=== PATIENT | female | born 1965 | race Two or more races ===

== ENCOUNTER 2020-01-08 21:49 | Inpatient (IN) | payer MEDICAID ==
[~2020-01-08] VITALS: Ht 157.5 cm; Wt 65.0 kg
[2020-01-08 23:14] LABS: Basophils # (auto) 0 10 ^3/uL (0-0.2); Eosinophils # (auto) 0 10 ^3/uL (0-0.8); Eosinophils % (auto) 0.2 % (0.0-7.0); Hemoglobin 12.4 g/dL (12.2-16.2); Lymphocytes # (auto) 0.7 10 ^3/uL (0.4-5.4); Lymphocytes % (auto) 25.1 % (10.0-50.0); Mean Corpuscular Hemoglobin 29.8 pg (28.0-32.0); Mean Corpuscular Hgb Conc. 33.4 g/dL (32.0-36.0); Mean Corpuscular Volume 89.2 fL (80.0-100.0); Monocytes # (auto) 0.4 10 ^3/uL (0-1.3); Monocytes % (auto) 13.4 % (0.0-12.0); Neutrophils # (auto) 1.7 10 ^3/uL (1.6-8.6); Neutrophils % (auto) 60.3 % (37.0-80.0); Nucleated Red Blood Cells % 0.2 %; Platelet Count (auto) 177 10^3/uL (140-450); Red Blood Cells 4.15 10^6/uL (4.0-5.20); Red Cell Distribution Width 13.1 % (11.8-14.3); White Blood Cell 2.7 10^3/uL (4.4-10.8)
[2020-01-08 23:29] LABS: INR 1.03 (0.9-1.15)
[2020-01-08 23:38] LABS: Alanine Aminotransferase 25 U/L (13-56); Anion Gap 10 (5-15); Aspartate Aminotransferase 20 U/L (15-37); BUN/Creatinine Ratio 15.5; Bilirubin, Total 0.3 mg/dL (0.2-1.0); Blood Urea Nitrogen 15 mg/dL (7-18); Calcium 8.6 mg/dL (8.5-10.1); Carbon Dioxide 22 mmol/L (21-32); Chloride 106 mmol/L (98-107); GFR African American 78 mL/min; GFR Non-African American 64 mL/min; Glucose 138 mg/dL (74-106); Magnesium 2.4 mg/dL (1.6-2.6); Potassium 3.4 mmol/L (3.5-5.1); Sodium 138 mmol/L (136-145); Total Protein 7.7 g/dL (6.4-8.2)
[2020-01-08 23:40] LABS: Alkaline Phosphatase 106 U/L (45-117)
[2020-01-09] MEDS ORDERED: MORPHINE SULF INJ 2 MG/ML SYRINGE 1ML IV PRN (08:00)
[2020-01-09] MEDS ORDERED: ONDANSETRON HCL 4 MG/2 ML VIAL IV PRN (08:00)
[2020-01-09] MEDS ORDERED: NITROGLYCERIN 0.4 MG SL TAB SL PRN (08:00)
[2020-01-09] MEDS ORDERED: DEXTROSE (50%) 50ML SYRG IV PRN (08:00)
[2020-01-09] MEDS ORDERED: ACETAMINOPHEN 500 MG TAB PO PRN (08:00)
[2020-01-09] MEDS ORDERED: POTASSIUM CHL 20 Meq TABLET PO ONE (08:00)
[2020-01-09] MEDS ORDERED: DOCUSATE SOD 100 MG CAP PO PRN (08:00)
[2020-01-09 08:22] LABS: Basophils # (auto) 0 10 ^3/uL (0-0.2); Basophils % (auto) 0.1 % (0.0-2.0); Eosinophils # (auto) 0 10 ^3/uL (0-0.8); Eosinophils % (auto) 0.3 % (0.0-7.0); Hematocrit 33.5 % (36.0-46.0); Hemoglobin 10.8 g/dL (12.2-16.2); Lymphocytes # (auto) 0.4 10 ^3/uL (0.4-5.4); Lymphocytes % (auto) 3.5 % (10.0-50.0); Mean Corpuscular Hemoglobin 28.4 pg (28.0-32.0); Mean Corpuscular Hgb Conc. 32.1 g/dL (32.0-36.0); Mean Corpuscular Volume 88.4 fL (80.0-100.0); Monocytes # (auto) 0.2 10 ^3/uL (0-1.3); Monocytes % (auto) 1.8 % (0.0-12.0); Neutrophils # (auto) 9.7 10 ^3/uL (1.6-8.6); Neutrophils % (auto) 94.3 % (37.0-80.0); Platelet Count (auto) 221 10^3/uL (140-450); Red Blood Cells 3.79 10^6/uL (4.0-5.20); White Blood Cell 10.3 10^3/uL (4.4-10.8)
[2020-01-09 08:40] LABS: Albumin 2.7 g/dL (3.4-5.0); BUN/Creatinine Ratio 23.9; Potassium 4.1 mmol/L (3.5-5.1)
[2020-01-09 08:42] LABS: Bilirubin, Total 0.2 mg/dL (0.2-1.0); Total Protein 7.1 g/dL (6.4-8.2)
[2020-01-09] MEDS: ENOXAPARIN SOD 40 MG/0.4 ML SYRINGE SC SCH (10:00)
[2020-01-09] MEDS: BUDESONIDE (INHALATION) 180 MCG IH IN SCH ×2 (10:23→22:17)
[2020-01-09 10:58] VITALS: BP 115/69
[2020-01-09] MEDS: ASCORBIC ACID 1,000 MG TAB PO SCH (11:00)
[2020-01-09] MEDS: DOXYCYCLINE 100MG/250ML 250 ML IV SCH ×2 (11:00→22:45)
[2020-01-09] MEDS: DexAMETHasone SOD PHOS 10MG/1ML VIAL INJ IV SCH (11:00)
[2020-01-09] MEDS: PANTOPRAZOLE 40 MG/10 ML VIAL INJ IV SCH (11:01)
[2020-01-09] MEDS: ZINC SULFATE 220mg CAP or TAB PO SCH (11:02)
[2020-01-09] MEDS: MULTIPLE VITAMIN TAB PO SCH (11:03)
[2020-01-09] MEDS: CHOLECALCIFEROL (VITD3) 2,000 UNIT CAP PO SCH (11:03)
[2020-01-09] MEDS: ACCU-CHEK COMFORT CURVE STRIP VI SCH ×3 (12:00→22:46)
[2020-01-09] MEDS: InsuLIN REG 1unit/0.01ml Soln (100units/ml) SC SCH ×3 (12:00→22:45)
[2020-01-09] MEDS: ALBUTEROL SULF HFA 90MCG INH 200DOSE IN SCH ×2 (14:03→22:17)
[2020-01-09] MEDS: SODIUM CHLOR 0.9% PF (SALINE LOCK) 10ML VIAL/SYR IV SCH ×2 (14:44→22:46)
[2020-01-10] MEDS: InsuLIN REG 1unit/0.01ml Soln (100units/ml) SC SCH ×4 (06:16→22:53)
[2020-01-10] MEDS: SODIUM CHLOR 0.9% PF (SALINE LOCK) 10ML VIAL/SYR IV SCH ×3 (06:21→21:28)
[2020-01-10] MEDS: ACCU-CHEK COMFORT CURVE STRIP VI SCH ×3 (06:21→17:26)
[2020-01-10 06:58] LABS: Hematocrit 34.6 % (36.0-46.0); Hemoglobin 11.6 g/dL (12.2-16.2); Mean Corpuscular Hemoglobin 29.7 pg (28.0-32.0); Mean Corpuscular Hgb Conc. 33.5 g/dL (32.0-36.0); Mean Corpuscular Volume 88.5 fL (80.0-100.0); Platelet Count (auto) 224 10^3/uL (140-450); Red Blood Cells 3.91 10^6/uL (4.0-5.20); Red Cell Distribution Width 13.3 % (11.8-14.3); White Blood Cell 2.3 10^3/uL (4.4-10.8)
[2020-01-10 07:01] LABS: Basophils % (manual) 0 (0.0-2.0); Blast Cells 0; Eosinophils % (manual) 0 (0-7); Metamyelocytes % 0; Promyelocytes % 0; Reactive Lymphocytes 0
[2020-01-10 07:29] LABS: Albumin 2.6 g/dL (3.4-5.0); Bilirubin, Total 0.4 mg/dL (0.2-1.0); Calcium 8.8 mg/dL (8.5-10.1); Total Protein 7.4 g/dL (6.4-8.2)
[2020-01-10] MEDS: ALBUTEROL SULF HFA 90MCG INH 200DOSE IN SCH ×3 (07:39→22:00)
[2020-01-10] MEDS: BUDESONIDE (INHALATION) 180 MCG IH IN SCH ×2 (07:39→22:00)
[2020-01-10 08:30] LABS: Band Neutrophils % (manual) 5; Lymphocytes % (manual) 23 (10.0-50.0); Monocytes % (manual) 19 (0-12); Myelocytes % 1
[2020-01-10] MEDS: DexAMETHasone SOD PHOS 10MG/1ML VIAL INJ IV SCH (10:00)
[2020-01-10] MEDS: MULTIPLE VITAMIN TAB PO SCH (10:00)
[2020-01-10] MEDS: DOXYCYCLINE 100MG/250ML 250 ML IV SCH ×2 (10:00→21:28)
[2020-01-10] MEDS: ENOXAPARIN SOD 40 MG/0.4 ML SYRINGE SC SCH (10:00)
[2020-01-10] MEDS: CHOLECALCIFEROL (VITD3) 2,000 UNIT CAP PO SCH (10:00)
[2020-01-10] MEDS: ZINC SULFATE 220mg CAP or TAB PO SCH (10:00)
[2020-01-10] MEDS: ASCORBIC ACID 1,000 MG TAB PO SCH (10:00)
[2020-01-10] MEDS: PANTOPRAZOLE 40 MG/10 ML VIAL INJ IV SCH (10:00)
[2020-01-10] MEDS: BENZTROPINE MESY 0.5 MG TAB PO SCH (21:28)
[2020-01-10] MEDS: VALPROIC ACID 250 MG/5 ML ORAL SOLN PO SCH (21:28)
[2020-01-10] MEDS: GABAPENTIN 400 MG CAP PO SCH (21:29)
[2020-01-10] MEDS ORDERED: INSULIN LANTUS (GLARGINE) 1 /0.01ml (100units/ml) SC SCH (22:00)
[2020-01-10 23:50] VITALS: BP 123/72
--- NOTE | 2020-01-11 | NUR ---
Telemetry admit from [facility] admitted to Telemetry unit. Patient oriented to Jayla Lino, primary RN, unit, room, bed, and unit policies regarding patient care and visiting hours. Patient now on continuous telemetry monitoring, tele box # 17. Patient placed on room air 97% o2 saturation, weighed by bed scale and encouraged to call if they need something. All questions and concerns addressed, patient verbalized understanding.
[2020-01-11 00:15] VITALS: BP 123/72
[2020-01-11 05:00] VITALS: BP 127/69
[2020-01-11] MEDS: SODIUM CHLOR 0.9% PF (SALINE LOCK) 10ML VIAL/SYR IV SCH ×3 (05:43→22:00)
[2020-01-11] MEDS: GABAPENTIN 400 MG CAP PO SCH ×3 (05:43→21:59)
[2020-01-11] MEDS: BENZTROPINE MESY 0.5 MG TAB PO SCH ×3 (05:43→22:16)
[2020-01-11] MEDS: ACCU-CHEK COMFORT CURVE STRIP VI SCH ×4 (06:52→22:05)
[2020-01-11] MEDS: InsuLIN REG 1unit/0.01ml Soln (100units/ml) SC SCH ×4 (06:55→22:00)
[2020-01-11] MEDS: BUDESONIDE (INHALATION) 180 MCG IH IN SCH ×2 (07:15→21:15)
[2020-01-11] MEDS: ALBUTEROL SULF HFA 90MCG INH 200DOSE IN SCH ×3 (07:15→21:16)
--- NOTE | 2020-01-11 08:00 | NUR ---
Opening Shift Note Assumed care of patient, awake, alert and oriented X4. No S/S of distress/SOB or pain. Tele# 17, sinus bradycardia @ 59 bpm. IV X2, left forearm, 22 gauge and right wrist, 22 gauge, both patent and saline locked. Instructed on POC and to call for assist PRN, verbalized understanding. Bed locked, in lowest position, call light within reach, will continue to monitor for changes Q1hr and PRN.
[2020-01-11 09:00] VITALS: BP 111/69
[2020-01-11] MEDS: ZINC SULFATE 220mg CAP or TAB PO SCH (10:00)
[2020-01-11 13:00] VITALS: BP 104/68
--- NOTE | 2020-01-11 13:15 | NUR ---
ROUNDS Dr Reynaga at bedside for rounds, no new orders received at this time.
--- NOTE | 2020-01-11 14:46 | NUR ---
1443 01/11/20 [facility] [phone] and spoke with Shanita-she referred me to [facility] [phone]. I called [facility] and left message asking if they would be able to do an MAGALIS with [facility]-awaiting return call.
[2020-01-11] MEDS: VALPROIC ACID 250 MG/5 ML ORAL SOLN PO SCH ×2 (14:52→21:58)
[2020-01-11] MEDS: DOXYCYCLINE 100MG/250ML 250 ML IV SCH ×2 (14:52→22:00)
[2020-01-11] MEDS: MULTIPLE VITAMIN TAB PO SCH (14:53)
[2020-01-11] MEDS: PANTOPRAZOLE 40 MG TAB PO SCH (14:53)
[2020-01-11] MEDS: ASCORBIC ACID 1,000 MG TAB PO SCH (14:53)
[2020-01-11] MEDS: CHOLECALCIFEROL (VITD3) 2,000 UNIT CAP PO SCH (14:55)
--- NOTE | 2020-01-11 14:59 | NUR ---
1500 01/11/20 I received a call from [facility] [employer] [facility]-he let me know that they can not do an MAGALIS with [facility]-that we need to try their contracted facilities first before they will consider an MAGALIS. I called Shanita with [facility] back [phone]-she will have a list of participating providers faxed to me.
[2020-01-11] MEDS: ENOXAPARIN SOD 40 MG/0.4 ML SYRINGE SC SCH (15:00)
--- NOTE | 2020-01-11 15:12 | NUR ---
I spoke with [facility] discharge nurse Rosa-she said patient has not been with [facility] since March of 2019.
--- NOTE | 2020-01-11 15:32 | NUR ---
Nutrition Assessment Notes Refer to link for further assessment details. Est energy needs: 2491-2433 kcals (23-25 kcals/kgBW) Est protein needs: 51-64 gms/day (0.8-1.0 g/kgBW) Will monitor and reassess prn. Addendum: 01/11/20 at [address] Amended: Links added.
--- NOTE | 2020-01-11 15:50 | NUR ---
Pt is an alert and oriented female that has been residing at [facility] for the past month. Per facility director, Shan, pt was referred by [facility]. Pt had previously been in [facility] before coming to [facility]. Pt has a public Guardian, Michael Hopson. 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 Per Shan 5 out of 6 of his residents tested positive and had to be relocated for a minimum of 2 weeks. States that his licensure does not allow him to take COVID positive pt's until they have been quarantined for 2 weeks. Pt has a slow response and memory issues in addition to LE deconditioning. Pt will need placement until she can return to [facility]. Notified [employer], Ana, who contacted [facility] and they are not contracted with any local facilities. Leo, Health plan family preservation caseworker, provided list of SNF's they are contracted with (63 facilities, with no phone numbers, in [place]). Contacted Victoria at [facility] and explained that pt had relocated from [place] to the [facility] a month ago and also has a public guardian that will have to authorize the transfer back to [place]. Victoria stated she will have the information forwarded to Leo and to the Enrollment department so that pt can disenroll and transition back to [facility]. Also notified Shan, facility director, and Michael Hopson, Public Guardian, who will followup today with the health plan and update myself and Ana.
[2020-01-11 17:00] VITALS: BP 106/42
--- NOTE | 2020-01-11 19:17 | NUR ---
Care endorsed to CACHORRO Hewitt, night nurse.
--- NOTE | 2020-01-11 19:55 | NUR ---
Opening Shift Note Assumed care of patient, awake and alert. No S/S of distress/SOB or pain. Instructed on POC and to call for assist PRN. Bed is in lowest locked position with bed rails up x2 and call light is within reach of the patient.
[2020-01-11 22:00] VITALS: BP 100/59
[2020-01-11] MEDS: INSULIN LANTUS (GLARGINE) 1 /0.01ml (100units/ml) SC SCH (22:00)
[2020-01-12 05:00] VITALS: BP 107/65
[2020-01-12] MEDS: ALBUTEROL SULF HFA 90MCG INH 200DOSE IN SCH ×3 (06:08→20:28)
[2020-01-12] MEDS: BUDESONIDE (INHALATION) 180 MCG IH IN SCH ×2 (06:08→20:29)
[2020-01-12] MEDS: SODIUM CHLOR 0.9% PF (SALINE LOCK) 10ML VIAL/SYR IV SCH ×3 (06:29→22:06)
[2020-01-12] MEDS: GABAPENTIN 400 MG CAP PO SCH ×3 (06:48→22:08)
[2020-01-12] MEDS: ACCU-CHEK COMFORT CURVE STRIP VI SCH ×4 (06:49→22:08)
[2020-01-12] MEDS: BENZTROPINE MESY 0.5 MG TAB PO SCH ×3 (06:54→22:07)
[2020-01-12] MEDS: InsuLIN REG 1unit/0.01ml Soln (100units/ml) SC SCH ×4 (06:57→22:11)
--- NOTE | 2020-01-12 08:00 | NUR ---
Opening note Assumed care of patient from NOC RN. No s/s of distress or pain noted. Bed is in lowest locked position, side rails up x2, and call light within reach. Updated patient on plan of care and patient verbalized understanding. Will continue to monitor.
[2020-01-12 08:42] VITALS: BP 105/67
[2020-01-12 09:37] VITALS: BP 67/20
[2020-01-12] MEDS: DOXYCYCLINE 100MG/250ML 250 ML IV SCH ×2 (10:56→22:06)
[2020-01-12] MEDS: ZINC SULFATE 220mg CAP or TAB PO SCH (10:56)
[2020-01-12] MEDS: PANTOPRAZOLE 40 MG TAB PO SCH (10:57)
[2020-01-12] MEDS: CHOLECALCIFEROL (VITD3) 2,000 UNIT CAP PO SCH (10:57)
[2020-01-12] MEDS: MULTIPLE VITAMIN TAB PO SCH (10:57)
[2020-01-12] MEDS: VALPROIC ACID 250 MG/5 ML ORAL SOLN PO SCH ×2 (10:57→22:07)
[2020-01-12] MEDS: ENOXAPARIN SOD 40 MG/0.4 ML SYRINGE SC SCH (10:58)
[2020-01-12] MEDS: ASCORBIC ACID 1,000 MG TAB PO SCH (10:58)
--- NOTE | 2020-01-12 11:50 | NUR ---
IV removal Bilateral IVs noted to be infiltrated. Both IV DC'd with clean sterile technique, catheters fully intact. Pressure dressings applied to site. Patient tolerated well.
[2020-01-12] MEDS: INSULIN LANTUS (GLARGINE) 1 /0.01ml (100units/ml) SC SCH ×2 (11:52→22:10)
--- NOTE | 2020-01-12 12:00 | NUR ---
IV insertion IV access obtained, via clean sterile technique by inserting 20 gauge catheter at right forearm after 3 attempts. IV secured properly. No trauma to site. Patient tolerated well.
[2020-01-12 13:00] VITALS: BP 103/69
--- NOTE | 2020-01-12 14:10 | NUR ---
Physician rounding. Dr. Reynaga at bedside. MD updated patient on plan of care, per MD patient is to go to SNF. Will follow through.
--- NOTE | 2020-01-12 14:25 | NUR ---
director of therapy services spoke with Letha with social services analyst, per Letha jauregui is on the case for this patient. Will notify
--- NOTE | 2020-01-12 14:28 | NUR ---
Physician notified of garbage pick up worker on case.
--- NOTE | 2020-01-12 15:05 | NUR ---
Call from case management Call received from Ana Gonsalez. Per Ana patient will be transferred at the soonest on Friday, per Ana she will provided updates as them come.
--- NOTE | 2020-01-12 19:30 | NUR ---
Opening Shift Note Assumed care of patient, awake and alert. No S/S of distress/SOB or pain. Instructed on POC and to call for assist PRN. Bed in lowest locked position, call light within reach, side rails up x2. Will continue to monitor for changes Q1hr and PRN.
[2020-01-12 21:49] VITALS: BP 104/59
[2020-01-12 22:00] VITALS: BP 104/59
[2020-01-13 06:40] LABS: Basophils # (auto) 0 10 ^3/uL (0-0.2); Basophils % (auto) 0.3 % (0.0-2.0); Eosinophils # (auto) 0 10 ^3/uL (0-0.8); Eosinophils % (auto) 0.6 % (0.0-7.0); Hematocrit 36.2 % (36.0-46.0); Hemoglobin 12.2 g/dL (12.2-16.2); Lymphocytes # (auto) 1.6 10 ^3/uL (0.4-5.4); Lymphocytes % (auto) 34.6 % (10.0-50.0); Mean Corpuscular Hemoglobin 29.6 pg (28.0-32.0); Mean Corpuscular Hgb Conc. 33.7 g/dL (32.0-36.0); Monocytes # (auto) 0.6 10 ^3/uL (0-1.3); Monocytes % (auto) 11.9 % (0.0-12.0); Neutrophils # (auto) 2.5 10 ^3/uL (1.6-8.6); Neutrophils % (auto) 52.6 % (37.0-80.0); Nucleated Red Blood Cells % 0.1 %; Platelet Count (auto) 378 10^3/uL (140-450); Red Blood Cells 4.11 10^6/uL (4.0-5.20); Red Cell Distribution Width 13.1 % (11.8-14.3); White Blood Cell 4.7 10^3/uL (4.4-10.8)
[2020-01-13 06:57] LABS: Albumin 2.7 g/dL (3.4-5.0); Calcium 8.8 mg/dL (8.5-10.1); Potassium 3.4 mmol/L (3.5-5.1)
[2020-01-13] MEDS: BUDESONIDE (INHALATION) 180 MCG IH IN SCH ×2 (06:59→21:59)
[2020-01-13] MEDS: ALBUTEROL SULF HFA 90MCG INH 200DOSE IN SCH ×3 (06:59→21:59)
[2020-01-13] MEDS: InsuLIN REG 1unit/0.01ml Soln (100units/ml) SC SCH ×4 (07:00→22:00)
[2020-01-13 07:01] LABS: BUN/Creatinine Ratio 18.2; Bilirubin, Total 0.4 mg/dL (0.2-1.0); CRP High Sensitivity 0.53 mg/dL (< 0.3); Total Protein 7.4 g/dL (6.4-8.2)
[2020-01-13] MEDS: SODIUM CHLOR 0.9% PF (SALINE LOCK) 10ML VIAL/SYR IV SCH ×2 (07:04→14:26)
[2020-01-13] MEDS: ACCU-CHEK COMFORT CURVE STRIP VI SCH ×3 (07:04→16:53)
[2020-01-13] MEDS: GABAPENTIN 400 MG CAP PO SCH ×3 (07:04→21:48)
[2020-01-13] MEDS: BENZTROPINE MESY 0.5 MG TAB PO SCH ×3 (07:04→21:48)
[2020-01-13 09:00] VITALS: BP 120/66
--- NOTE | 2020-01-13 10:20 | NUR ---
Physician rounding Dr. Lebron at bedside. MD updated patient on plan of care, patient verbalized understanding. New orders received, will follow through.
[2020-01-13] MEDS ORDERED: guaiFENesin-DM 100/10mg/5ml SYR PO PRN (11:00)
[2020-01-13] MEDS: ZINC SULFATE 220mg CAP or TAB PO SCH (11:34)
[2020-01-13] MEDS: ENOXAPARIN SOD 40 MG/0.4 ML SYRINGE SC SCH (11:34)
[2020-01-13] MEDS: DOXYCYCLINE 100MG/250ML 250 ML IV SCH ×2 (11:34→21:47)
[2020-01-13] MEDS: VALPROIC ACID 250 MG/5 ML ORAL SOLN PO SCH ×2 (11:34→21:48)
[2020-01-13] MEDS: ASCORBIC ACID 1,000 MG TAB PO SCH (11:35)
[2020-01-13] MEDS: MULTIPLE VITAMIN TAB PO SCH (11:35)
[2020-01-13] MEDS: CHOLECALCIFEROL (VITD3) 2,000 UNIT CAP PO SCH (11:35)
[2020-01-13] MEDS: PANTOPRAZOLE 40 MG TAB PO SCH (11:47)
[2020-01-13] MEDS: INSULIN LANTUS (GLARGINE) 1 /0.01ml (100units/ml) SC SCH ×2 (11:55→22:00)
[2020-01-13 13:00] VITALS: BP 102/61
[2020-01-13 17:30] VITALS: BP 104/64
--- NOTE | 2020-01-13 19:00 | NUR ---
END OF SHIFT NOTE Endorsed care to NOC RN. No s/s of distress noted.
--- NOTE | 2020-01-13 20:00 | NUR ---
Opening Shift Note Assumed care of patient, awake and alert x4. Patient denies pain or shortness of breath at this time. No sign/symptoms of distress noted or verbalized at this time. No sign/symptoms of distress noted or verbalized at this time. Instructed on plan of care and encouraged patient to call for assistance as needed, patient verbalized understanding. Bed is locked in lowest position, side rails x 2 are up, and call light is within reach.
[2020-01-13 21:00] VITALS: BP 114/60
[2020-01-14] MEDS: ACCU-CHEK COMFORT CURVE STRIP VI SCH ×5 (00:45→22:23)
[2020-01-14] MEDS: SODIUM CHLOR 0.9% PF (SALINE LOCK) 10ML VIAL/SYR IV SCH ×4 (00:46→22:22)
--- NOTE | 2020-01-14 01:16 | NUR ---
Urine Sample Urine sample collected and sent to lab via bullet.
[2020-01-14 02:16] LABS: Urine Bacteria FEW /hpf (None Seen); Urine Blood TRACE /uL (Negative); Urine Specific Gravity 1.007 (1.001-1.035); Urine WBC 7 /hpf (0 - 5)
[2020-01-14 05:00] VITALS: BP 116/55
[2020-01-14] MEDS: GABAPENTIN 400 MG CAP PO SCH ×3 (06:27→22:22)
[2020-01-14] MEDS: BENZTROPINE MESY 0.5 MG TAB PO SCH ×3 (06:27→22:22)
[2020-01-14] MEDS: InsuLIN REG 1unit/0.01ml Soln (100units/ml) SC SCH ×4 (06:35→22:32)
[2020-01-14] MEDS: ALBUTEROL SULF HFA 90MCG INH 200DOSE IN SCH ×3 (06:43→22:30)
[2020-01-14] MEDS: BUDESONIDE (INHALATION) 180 MCG IH IN SCH ×2 (06:43→22:30)
--- NOTE | 2020-01-14 07:30 | NUR ---
ASSUMED CARE OF PATIENT AWAKE AND ALERT. RESPIRATIONS EVEN AND UNLABORED ON ROOM AIR. PATIENT VERBALIZED THAT SHE IS NOT FEELING ANY PAIN AT THIS TIME. UPDATED PATIENT ON PLAN OF CARE AND TO CALL FOR ASSISTANCE IF NEEDED. BED LOCKED IN LOWEST POSITION. HOB ELEVATED AT LEAST 30 DEGREES. CALL LIGHT IS WITHIN REACH AND SIDE RAILS UP X 2.
[2020-01-14 09:00] VITALS: BP 110/68
[2020-01-14] MEDS: VALPROIC ACID 250 MG/5 ML ORAL SOLN PO SCH ×2 (10:25→22:22)
[2020-01-14] MEDS: PANTOPRAZOLE 40 MG TAB PO SCH (10:25)
[2020-01-14] MEDS: ZINC SULFATE 220mg CAP or TAB PO SCH (10:25)
[2020-01-14] MEDS: MULTIPLE VITAMIN TAB PO SCH (10:25)
[2020-01-14] MEDS: ENOXAPARIN SOD 40 MG/0.4 ML SYRINGE SC SCH (10:26)
[2020-01-14] MEDS: CHOLECALCIFEROL (VITD3) 2,000 UNIT CAP PO SCH (10:26)
[2020-01-14] MEDS: ASCORBIC ACID 1,000 MG TAB PO SCH (10:26)
[2020-01-14] MEDS: INSULIN LANTUS (GLARGINE) 1 /0.01ml (100units/ml) SC SCH ×2 (10:46→22:32)
[2020-01-14 12:35] VITALS: BP 137/80
--- NOTE | 2020-01-14 13:00 | NUR ---
DR FRAZIER AT BEDSIDE. INSTRUCTED TO CONTACT [facility] TO FIND OUT ABOUT PROGRESS OF FINDING PLACEMENT FOR THIS PATIENT. NO NEW ORDERS AT THIS TIME. CONTINUE CARE.
--- NOTE | 2020-01-14 13:10 | NUR ---
health social work professor paged regarding update on patient's transfer
--- NOTE | 2020-01-14 13:21 | NUR ---
Spoke with lauren from social director. Updated Lauren on the latest note from social director which was from 01/11/20. Lauren verbalized that she will need to learn more about this patient's case and that she will call me back as soon as she can with an update about placement fro this patient.
--- NOTE | 2020-01-14 14:00 | NUR ---
SPOKE WITH MIKAELA FROM [facility]. MIKAELA VERBALIZED THAT SHE IS AWARE OF THE PATIENT'S CURRENT STATUS AND IS CURRENTLY WORKING ON THIS PATIENT'S CASE, HOWEVER SHE VERBALIZED THAT PLACEMENT MAY NOT BE SET UP UNTIL Friday01/17/20.
--- NOTE | 2020-01-14 14:04 | NUR ---
Nutrition Followup Notes Pt wt is 63.2 kg Pt is positive for COVID, in isolation. Pt is with a CCHO 60g/2gm Na diet, appetite is good aeb 100% x2 PO intake per RN doc. Est energy needs: 6866-4148 kcals (23-25 kcals/kgBW) Est protein needs: 51-64 gms/day (0.8-1.0 g/kgBW) Will monitor and reassess prn. LABS: Gluc 183 H, Alb 2.7 L GI: Pt had 1 BM on 01/12 per RN doc BS: 21 LOW RISK. REFER TO WOUND ASSESSMENT REPORT FOR FURTHER DETAILS PES: Altered nutrition related lab values r/t current/chronic medical condition aeb hyperglycemia, elev A1c, hypoalbuminemia Comments Will continue monitor pertinent lab values, skin status, PO intake and wt trends. Will F/u in 3-5 days. 1) Continue to closely monitor pt PO intake to meet at least 75% of meals 2) Refer pt to a RD/CDE for nutrition education upon D/C 3) Continue current plan of care
[2020-01-14 17:21] VITALS: BP 100/68
--- NOTE | 2020-01-14 19:09 | NUR ---
ENDORSED CARE TO NOC SHIFT RN
--- NOTE | 2020-01-14 19:30 | NUR ---
Opening Shift Note Assumed care of patient, awake and alert x4. Patient denies pain or shortness of breath at this time. Patient is on room air, spo2: 93% at this time. No sign/symptoms of distress noted or verbalized at this time. Instructed on plan of care and encouraged patient to call for assistance as needed, patient verbalized understanding. Bed is locked in lowest position, side rails x 2 are up, and call light is within reach.
[2020-01-14 22:00] VITALS: BP 106/68
[2020-01-15 05:00] VITALS: BP 106/62
[2020-01-15] MEDS: BENZTROPINE MESY 0.5 MG TAB PO SCH ×3 (05:43→21:33)
[2020-01-15] MEDS: GABAPENTIN 400 MG CAP PO SCH ×3 (05:43→21:33)
[2020-01-15] MEDS: SODIUM CHLOR 0.9% PF (SALINE LOCK) 10ML VIAL/SYR IV SCH ×3 (05:43→21:33)
[2020-01-15] MEDS: ACCU-CHEK COMFORT CURVE STRIP VI SCH ×4 (05:43→21:33)
[2020-01-15] MEDS: InsuLIN REG 1unit/0.01ml Soln (100units/ml) SC SCH ×4 (06:29→21:34)
[2020-01-15] MEDS: ALBUTEROL SULF HFA 90MCG INH 200DOSE IN SCH ×3 (06:33→21:52)
[2020-01-15] MEDS: BUDESONIDE (INHALATION) 180 MCG IH IN SCH ×2 (06:33→21:52)
[2020-01-15 09:00] VITALS: BP 106/70
[2020-01-15] MEDS: PANTOPRAZOLE 40 MG TAB PO SCH (09:06)
[2020-01-15] MEDS: ASCORBIC ACID 1,000 MG TAB PO SCH (09:06)
[2020-01-15] MEDS: MULTIPLE VITAMIN TAB PO SCH (09:06)
[2020-01-15] MEDS: ENOXAPARIN SOD 40 MG/0.4 ML SYRINGE SC SCH (09:06)
[2020-01-15] MEDS: ZINC SULFATE 220mg CAP or TAB PO SCH (09:06)
[2020-01-15] MEDS: CHOLECALCIFEROL (VITD3) 2,000 UNIT CAP PO SCH (09:06)
[2020-01-15] MEDS: VALPROIC ACID 250 MG/5 ML ORAL SOLN PO SCH ×2 (09:07→21:33)
[2020-01-15 10:11] VITALS: BP 106/70
[2020-01-15] MEDS: INSULIN LANTUS (GLARGINE) 1 /0.01ml (100units/ml) SC SCH ×2 (11:20→21:34)
[2020-01-15 12:59] VITALS: BP 104/65
--- NOTE | 2020-01-15 13:05 | NUR ---
PATIENT PLACED BACK ON BI-PAP
[2020-01-15 16:49] VITALS: BP 102/66
--- NOTE | 2020-01-15 20:00 | NUR ---
Opening Shift Note Assumed care of patient, awake and alert x4. Patient denies pain or shortness of breath at this time. Patient is on room air at this time. No sign/symptoms of distress noted or verbalized at this time. Instructed on plan of care and encouraged patient to call for assistance as needed, patient verbalized understanding. Bed is locked in lowest position, side rails x 2 are up, and call light is within reach.
[2020-01-15 22:00] VITALS: BP 113/72
[2020-01-16 05:00] VITALS: BP 116/68
[2020-01-16] MEDS: SODIUM CHLOR 0.9% PF (SALINE LOCK) 10ML VIAL/SYR IV SCH ×3 (06:26→22:55)
[2020-01-16] MEDS: GABAPENTIN 400 MG CAP PO SCH ×3 (06:26→21:00)
[2020-01-16] MEDS: BENZTROPINE MESY 0.5 MG TAB PO SCH ×3 (06:26→21:01)
[2020-01-16] MEDS: InsuLIN REG 1unit/0.01ml Soln (100units/ml) SC SCH ×4 (06:26→21:00)
[2020-01-16] MEDS: ACCU-CHEK COMFORT CURVE STRIP VI SCH ×4 (06:26→21:00)
[2020-01-16] MEDS: BUDESONIDE (INHALATION) 180 MCG IH IN SCH ×2 (06:31→22:40)
[2020-01-16] MEDS: ALBUTEROL SULF HFA 90MCG INH 200DOSE IN SCH ×3 (06:31→22:40)
--- NOTE | 2020-01-16 07:10 | NUR ---
Opening Shift Note Assumed care of patient, awake and alert. No S/S of distress/SOB or pain. Insructed on POC and to callfor assist PRN, will continue to monitor for changes Q1hr and PRN.
[2020-01-16 09:00] VITALS: BP 104/60
[2020-01-16] MEDS: VALPROIC ACID 250 MG/5 ML ORAL SOLN PO SCH ×2 (09:50→21:01)
[2020-01-16] MEDS: MULTIPLE VITAMIN TAB PO SCH (09:50)
[2020-01-16] MEDS: ZINC SULFATE 220mg CAP or TAB PO SCH (09:50)
[2020-01-16] MEDS: CHOLECALCIFEROL (VITD3) 2,000 UNIT CAP PO SCH (09:51)
[2020-01-16] MEDS: PANTOPRAZOLE 40 MG TAB PO SCH (09:51)
[2020-01-16] MEDS: ENOXAPARIN SOD 40 MG/0.4 ML SYRINGE SC SCH (09:51)
[2020-01-16] MEDS: ASCORBIC ACID 1,000 MG TAB PO SCH (09:51)
[2020-01-16] MEDS: INSULIN LANTUS (GLARGINE) 1 /0.01ml (100units/ml) SC SCH ×2 (12:44→21:00)
[2020-01-16 13:00] VITALS: BP 100/73
[2020-01-16 17:00] VITALS: BP 105/67
--- NOTE | 2020-01-16 19:40 | NUR ---
OPENING NOTE Received report from day shift RN. Patient is A&O X's 4 with no s/s of distress. Patient denies any SOB/pain at this time. Patient is on room air. Educated patient on POC and to use call light when in need of any assistance. Patient verbalized understanding. Bed is in lowest/locked position with side rails up X's 2 and call light is within reach of patient. Will continue care.
[2020-01-16 22:00] VITALS: BP 97/52
[2020-01-17 05:00] VITALS: BP 107/65
--- NOTE | 2020-01-17 05:11 | NUR ---
blood sugar PATIENT REPORTED THAT SHE FELT LIKE HER BLOOD SUGAR FELT OFF. BLOOD SUGAR AT 63. PATIENT WAS GIVEN JUICE AND CRACKERS AND TOLERATING IT WELL. PATIENT A&O X'S 4 WITH NO S/S OF DISTRESS. WILL CONTINUE CARE.
[2020-01-17] MEDS: BENZTROPINE MESY 0.5 MG TAB PO SCH ×3 (05:57→21:26)
[2020-01-17] MEDS: GABAPENTIN 400 MG CAP PO SCH ×3 (05:58→21:27)
[2020-01-17] MEDS: ALBUTEROL SULF HFA 90MCG INH 200DOSE IN SCH ×3 (06:24→22:00)
[2020-01-17] MEDS: BUDESONIDE (INHALATION) 180 MCG IH IN SCH ×2 (06:24→22:00)
[2020-01-17] MEDS: InsuLIN REG 1unit/0.01ml Soln (100units/ml) SC SCH ×4 (06:40→21:28)
[2020-01-17] MEDS: ACCU-CHEK COMFORT CURVE STRIP VI SCH ×4 (06:41→21:28)
[2020-01-17] MEDS: SODIUM CHLOR 0.9% PF (SALINE LOCK) 10ML VIAL/SYR IV SCH ×3 (06:41→21:26)
--- NOTE | 2020-01-17 06:50 | NUR ---
BLOOD SUGAR RECHECK 184 AFTER DRINKING SOME JUICE AND EATING CRACKERS. THIS MORNING INSULIN WILL BE HELD D/T PATIENT BEING SYMPTOMATIC TO LOW BLOOD SUGAR OF 63 AT ABOUT 0500.
--- NOTE | 2020-01-17 07:30 | NUR ---
OPENING NOTE ASSUMED CARE OF PT. ALERT AND ORIENTED. NO S/S OF SOB/DISTRESS NOTED. BED SET TO LOWEST POSITION/LOCKED, BEDSIDE RAILS UP X2, CALL LIGHT WITHIN REACH. INSTRUCTED PT TO CALL FOR ASSISTANCE. UPDATED ON POC. PT VERBALIZED UNDERSTANDING. WILL CONTINUE TO MONITOR Q1HR AND PRN.
[2020-01-17 09:00] VITALS: BP_SYST 100; BP_SYST 105; BP_DIAS 48; BP_DIAS 67
[2020-01-17] MEDS: VALPROIC ACID 250 MG/5 ML ORAL SOLN PO SCH ×2 (09:42→21:27)
[2020-01-17] MEDS: ZINC SULFATE 220mg CAP or TAB PO SCH (09:42)
[2020-01-17] MEDS: PANTOPRAZOLE 40 MG TAB PO SCH (09:42)
[2020-01-17] MEDS: MULTIPLE VITAMIN TAB PO SCH (09:42)
[2020-01-17] MEDS: ASCORBIC ACID 1,000 MG TAB PO SCH (09:43)
[2020-01-17] MEDS: CHOLECALCIFEROL (VITD3) 2,000 UNIT CAP PO SCH (09:43)
[2020-01-17] MEDS: ENOXAPARIN SOD 40 MG/0.4 ML SYRINGE SC SCH (09:43)
[2020-01-17] MEDS: INSULIN LANTUS (GLARGINE) 1 /0.01ml (100units/ml) SC SCH ×2 (09:54→21:28)
--- NOTE | 2020-01-17 12:10 | NUR ---
Nutrition Followup Notes Wt: 64.2 kg Pt is positive for COVID, in isolation. Pt is with a CCHO 60g/2gm Na diet, appetite is good aeb 100% x4 PO intake per RN doc. Est energy needs: 7760-2770 kcals (23-25 kcals/kgBW), Est protein needs: 51-64 gms/day (0.8-1.0 g/kgBW). Will monitor and reassess prn. LABS: GLU 184 H GI: Pt had 3 BM today per RN doc BS: 21 LOW RISK. REFER TO WOUND ASSESSMENT REPORT FOR FURTHER DETAILS PES: Altered nutrition related lab values r/t current/chronic medical condition aeb hyperglycemia, elev A1c, hypoalbuminemia Comments: Will continue monitor pertinent lab values, skin status, PO intake. Will F/u in 3-5 days. Rec: 1) Refer pt to a RD/CDE for nutrition education upon D/C. 2) Continue current plan of care
[2020-01-17 13:00] VITALS: BP 124/78
--- NOTE | 2020-01-17 15:27 | NUR ---
IN-HOUSE COVID SWAB COVID SWAB COLLECTED AND WALKED TO LAB BY JAMAL MARKS).
[2020-01-17 17:00] VITALS: BP 114/64
[2020-01-18] VITALS (7 sets, daily range): BP systolic 97–114; BP diastolic 45–79
[2020-01-18] MEDS: ALBUTEROL SULF HFA 90MCG INH 200DOSE IN SCH ×3 (05:58→21:54)
[2020-01-18] MEDS: BUDESONIDE (INHALATION) 180 MCG IH IN SCH ×2 (05:58→21:54)
[2020-01-18] MEDS: ACCU-CHEK COMFORT CURVE STRIP VI SCH ×4 (06:33→21:29)
[2020-01-18] MEDS: SODIUM CHLOR 0.9% PF (SALINE LOCK) 10ML VIAL/SYR IV SCH ×3 (06:33→21:28)
[2020-01-18] MEDS: BENZTROPINE MESY 0.5 MG TAB PO SCH ×3 (06:47→21:28)
[2020-01-18] MEDS: InsuLIN REG 1unit/0.01ml Soln (100units/ml) SC SCH ×4 (06:48→21:28)
[2020-01-18] MEDS: GABAPENTIN 400 MG CAP PO SCH ×3 (06:48→21:28)
--- NOTE | 2020-01-18 06:49 | NUR ---
BLOOD SUGAR was at 59. patient asymptomatic. had patient drink juice and eat a cracker. blood sugar rechecked at 120.
[2020-01-18] MEDS: ZINC SULFATE 220mg CAP or TAB PO SCH (11:15)
[2020-01-18] MEDS: PANTOPRAZOLE 40 MG TAB PO SCH (11:16)
[2020-01-18] MEDS: MULTIPLE VITAMIN TAB PO SCH (11:16)
[2020-01-18] MEDS: VALPROIC ACID 250 MG/5 ML ORAL SOLN PO SCH ×2 (11:16→21:28)
[2020-01-18] MEDS: CHOLECALCIFEROL (VITD3) 2,000 UNIT CAP PO SCH (11:17)
[2020-01-18] MEDS: ASCORBIC ACID 1,000 MG TAB PO SCH (11:17)
[2020-01-18] MEDS: ENOXAPARIN SOD 40 MG/0.4 ML SYRINGE SC SCH (11:18)
[2020-01-18] MEDS: INSULIN LANTUS (GLARGINE) 1 /0.01ml (100units/ml) SC SCH ×2 (11:25→21:35)
--- NOTE | 2020-01-18 14:53 | NUR ---
Notified by patient's public guardian, Michael Hopson, that pt has been disenrolled from [facility] and changed back to [facility] effective 12/30/2019. Mr. Hopson is requesting that pt be transferred to local facility, [facility], and states he is not authorizing pt to be transferred back to the [facility] under [facility]. Pt is COVID + and has to go to facility taking COVID patient's. Contacted Malgorzata at [facility]([phone]) and faxed clinical information. Pt accepted for Placement and Malgorzata requesting authorization from [facility]. Digital Product Specialist, Mamie, will be contacting [facility] manager of case management, Joe, for SNF and Transportation authorization.
--- NOTE | 2020-01-18 17:44 | NUR ---
[facility] RECEIVED CALL FROM ART FROM [facility] , PER ART [facility] WILL CALL WHEN THEY ARE ON THEIR WAY TO CHECK PROCESSING CLERK PATIENT. PER ART CHECK PROCESSING CLERK WILL BE AFTER 1830.
--- NOTE | 2020-01-18 18:38 | NUR ---
TRANSPORTATION PER REGIN FROM [facility] , THEY DO NOT TRANSPORT COVID POSITIVE. WILL INFORM
--- NOTE | 2020-01-18 18:42 | NUR ---
DISCHARGE PAGED HOSPITALIST RE: DISCHARGE. AWAITING CALL BACK. SPOKE TO CLAIRE TINEO. INFORMED HI, OF CURRENT DISCHARGE SITUATION. PER NOMAN RANGEL. HOLD DISCHARGE.
--- NOTE | 2020-01-18 19:30 | NUR ---
OPENING NOTE Received report from day shift RN. Patient is A&O X's 4 with no s/s of distress and denies any pain/SOB. Patient is on room air. Educated patient on POC/to use call light when in need of any assistance. Patient verbalized understanding. Bed is in lowest/locked position with side rails up X's 2 and call light is within reach of patient. Provided patient with tea at this time. Will continue care.
[2020-01-19 05:56] VITALS: BP 117/70
[2020-01-19] MEDS: GABAPENTIN 400 MG CAP PO SCH ×2 (06:20→14:00)
[2020-01-19] MEDS: BENZTROPINE MESY 0.5 MG TAB PO SCH ×2 (06:20→14:00)
[2020-01-19] MEDS: SODIUM CHLOR 0.9% PF (SALINE LOCK) 10ML VIAL/SYR IV SCH ×2 (06:20→14:00)
[2020-01-19] MEDS: InsuLIN REG 1unit/0.01ml Soln (100units/ml) SC SCH ×3 (06:20→17:00)
[2020-01-19] MEDS: ACCU-CHEK COMFORT CURVE STRIP VI SCH ×3 (06:21→17:00)
[2020-01-19] MEDS: BUDESONIDE (INHALATION) 180 MCG IH IN SCH (06:42)
[2020-01-19] MEDS: ALBUTEROL SULF HFA 90MCG INH 200DOSE IN SCH ×2 (06:42→13:41)
[2020-01-19 09:00] VITALS: BP 103/69
[2020-01-19] MEDS: INSULIN LANTUS (GLARGINE) 1 /0.01ml (100units/ml) SC SCH (10:00)
--- NOTE | 2020-01-19 10:04 | NUR ---
1000 01/19/20 - On 01/18/2020 Faxed to [facility] at [phone] face sheet, proof of insurance, order for placement (SNF/ [facility] accepted patient) for physical therapy and COVID positive. Requesting authorizations for SNF and transportation. Addendum: 01/19/20 at 1018 by Mamie Wilkins RN CM Pending review and pickup time
[2020-01-19] MEDS: ZINC SULFATE 220mg CAP or TAB PO SCH (11:08)
[2020-01-19] MEDS: MULTIPLE VITAMIN TAB PO SCH (11:08)
[2020-01-19] MEDS: VALPROIC ACID 250 MG/5 ML ORAL SOLN PO SCH (11:08)
[2020-01-19] MEDS: PANTOPRAZOLE 40 MG TAB PO SCH (11:09)
[2020-01-19] MEDS: ASCORBIC ACID 1,000 MG TAB PO SCH (11:09)
[2020-01-19] MEDS: CHOLECALCIFEROL (VITD3) 2,000 UNIT CAP PO SCH (11:09)
[2020-01-19] MEDS: ENOXAPARIN SOD 40 MG/0.4 ML SYRINGE SC SCH (11:10)
--- NOTE | 2020-01-19 11:51 | NUR ---
1145 01/19/20 - Faxed to [facility] transportation at [phone] face sheet, [facility] transportation request form. Contacted [facility] transportation dept at [phone], spoke with Alejandra who confirmed receiving all faxed documentation. Scheduled pickle pumper time for patient going to [facility] for 1600. Informed nurse EL of the above information.
--- NOTE | 2020-01-19 12:40 | NUR ---
[facility] RECEIVED CALL HOANG FROM [facility] . PER HOANG THEY NEED TO FIND A TRANSPORTATION COMPANY THAT TRANSPORT COVID POSITIVE PATIENT, SHE WILL CALL THIS NURSE WITH AN UPDATE.
[2020-01-19 12:46] VITALS: BP 116/77
--- NOTE | 2020-01-19 13:01 | NUR ---
[facility] RECEIVED CALL HOANG FROM [facility] . PER HOANG ORDER NEEDS TO BE CHANGED TO GURNEY FROM WHEELCHAIR, TRANSPORT DOES NOT TRANSPORT COVID POSITIVE PATIENTS IN WHEELCHAIR. THIS NURSE DIRECTED HER TO STEFAN IN CASE MANAGEMENT.
--- NOTE | 2020-01-19 13:30 | NUR ---
TRANSPORT PER HOANG FROM [facility]SP[facility]ATION WILL BE PROVIDE BY [employer] AT 1600. AUTH# [id number].
--- NOTE | 2020-01-19 15:06 | NUR ---
4278 01/19/20 - Contacted by [facility] transportation planning technician Trang who stated due to limited transportation companies available to transport COVID positive patient. Patient will need to be transported via gurney. She also requested change to [facility] transportation form be faxed to their office. I faxed requested changes to [facility] at [phone]. Patient is still scheduled for pickup at 1600.
--- NOTE | 2020-01-19 16:09 | NUR ---
Discharge Discharge instructions given as ordered. Encourage to follow up with Dr. Aguayo at [facility]. All questions and concerns addressed. Patient verbalized understanding. IV removed with catheter intact, pressure dressing applied. Telemetry unit returned to ICU.
--- NOTE | 2020-01-19 16:40 | NUR ---
TRANSPORTATION TRANSPORTATION ARRIVED TO [facility] PAT[facility] BUT THEY HAD A WHEELCHAIR, THEY INFORM ALMOND HULLER THEY HAD TO GO AND GET GURNEY.
--- NOTE | 2020-01-19 17:45 | NUR ---
TRANSPORTATION MELE (US) CONTACTED [employer] RE:MICKI. RAMIRO SANTANA ORDER SHOWS TO BE COMPLETED. MAX WAS INFORMED PATIENT WAS STILL HERE. PER MAX ETA OF 30 MIN WAS GIVEN.
--- NOTE | 2020-01-19 19:08 | NUR ---
TRANSPORTATION CALLED [employer] TO CHECK ON PICK STATUS. PER MARCIA ORDER SHOWS "COMPLETED", PER MARCIA TRANSPORTATIONS ETA 15MIN.
--- NOTE | 2020-01-19 20:28 | NUR ---
Patient Discharged [employer] arrived to transport the patient to [facility]. Discharged paper work completed, patient signed all required forms, IV and telemetry boxed already removed, and all patient belongings gathered and packed. Gave the piledriver carpenter the address to [employer]. They left with the patient via gurney at 5hrs.
== END 2020-01-19 20:25 | DRG 137 ==
LOC: ER 21:51 → TELE 21:52 → TELE-EAST 01-10 23:48
PROVIDERS: ADMIT Nurse Practitioner Family; ATTEND Internal Medicine
DX: U07.1 COVID-19 (principal); J12.89 Other viral pneumonia; E44.1 Mild protein-calorie malnutrition; F25.9 Schizoaffective disorder, unspecified; E87.6 Hypokalemia; K21.9 Gastro-esophageal reflux disease without esophagitis; E11.9 Type 2 diabetes mellitus without complications; D72.819 Decreased white blood cell count, unspecified; Z79.4 Long term (current) use of insulin
CPT/HCPCS: 36415; 36600; 70450; 71045; 72125; 80053; 81001; 82728; 82805; 82962; 83036; 83605; 83615; 83735; 83880; 84484; 85007; 85025; 85027; 85379; 85610; 85730; 86141; 87426; 93005; 94640; 97163; C9113; G0378; J1100; J1815; J3490